=== PATIENT | male | born 1965 | race Caucasian/White ===

== ENCOUNTER 2024-09-05 09:25 | Outpatient (AMB) | payer MEDICAID, SELFPAY ==
--- NOTE | 2024-09-05 09:28 | A.OFFVIS_ITS ---
Vital Signs 09/05/24 09:29 Height 5 ft 7 in Weight 175 lb BMI 27.4 BP 110/78 Blood Pressure Location Rt brachial Position Sitting Pulse 95 Pulse Source Pulse Oximeter Pulse Oximetry (%) 94 Oxygen Delivery Method Room Air Intake Visit Reasons: COPD/Hypoxemia Allergies No Known Allergies Allergy (Unverified 09/05/24 09:32) HPI HPI COPD/Hypoxemia: Details: Dano is a pleasant 58 year old male, current minimal smoker a 20+ pack year history, with underlying COPD, HTN, Anxiety and chronic sinusitis. He was referred by PCP for pulmonary evaluation. He has been maintained on Trelegy 100 mcg however continues to experience significant shortness of breath during physical exertion such as climbing multiple flights of stairs or hills. Additional symptoms include a feeling of chest tightness, possibly exacerbated by underlying anxiety when he faces increased stress or physically demanding si tuations. He denies frequent respiratory infections and reports no benefits derived from his current albuterol usage. The patient has a documented history of emphysema, with his last CT scan 10/2022 showing bilateral ground glass opacities possible related to smoking induced injury. Denies repeat imaging. PFT from February 2024 revealed mild COPD with decreased diffusion capacity reflective of emphysema. He reports over the last few years has minimized smoking and he admits to occasional smoking as a stress reliever despite associated risks. He has a therapist and is currently prescribed antianxiety medications from PCP. His occupational history included exposure to potential respiratory irritants over 30 years in the [employer] industry, and he sometimes suffers from seasonal allergies. He denies prior need for supplmental oxygen and per referral his oxygen saturation was recorded at 89% at PCP visit, however patient refused oxygen at that time. He does have significant clubbing of his fingers, suggests chronic hypoxia indicative of his pulmonary condition. [facility] Social History (Updated 09/05/24 @ 09:32 by Darline Cloud CMA) Patient Tobacco Use Status: Current someday Tobacco user Cigarettes Per Day: 2 Review of Systems Const Denies chills, Denies excessive sweating, Denies fever(s), Denies headache(s) and Denies night sweats Eyes Denies dry eyes, Denies irritation and Denies itchy eyes ENT Reports Normal hearing present, Denies headache(s), Denies nasal congestion, Denies nasal discharge, Denies post nasal drip and Denies sore throat Card Denies chest pain, Denies chest pain at rest, Denies chest pain with activity, Denies claudication, Denies leg edema, Denies dyspnea, Denies orthopnea and Denies paroxysmal nocturnal dyspnea Resp Denies chest congestion, Denies cough, Denies excessive phlegm production, Denies pain on inspiration, Denies pain with cough, Denies dyspnea, Denies stridor and Denies wheezing Musc Denies myalgias Neuro Reports Normal hearing present and Denies headache(s) Endo Denies excessive sweating Zac/Lymph Denies lymphadenopathy Aller/Immun Denies itchy eyes, Denies seasonal rhinorrhea and Denies wheezing Physical Exam Vital Signs: Last Vital Signs Pulse 95 09/05/24 09:29 BP 110/78 09/05/24 09:29 Pulse Ox 94 09/05/24 09:29 Oxygen Delivery Method Room Air 09/05/24 09:29 BMI result Body Mass Index 27.4 Const General: cooperative, healthy appearing, comfortable, no acute distress, well developed and alert Nutritional Appearance: obese Orientation/consciousness: patient oriented x3 Limitations: no limitations HEENT Head: Yes normal to inspection, Yes normocephalic and Yes atraumatic Ears: hearing grossly normal bilaterally and external ears normal Eyes General: appearance normal, both eyes and all related structures Eyelids: Yes eyelids normal Sclerae: sclerae normal EOM: EOMs intact bilaterally Neck Neck: Yes normal visual inspection and Yes no lymphadenopathy Lymphatic: no lymphadenopathy noted Chest Chest palpation & inspection: normal inspection of the chest Resp Effort & Inspection: normal respiratory effort, able to speak in complete sentences, no audible wheezes, no cough, no stridor, not tachypneic, no tripod positioning and no use of accessory muscles Auscultation: diminished lung sounds Cardio Jugular venous distension: no JVD Rate: regular rate Rhythm: regular rhythm Skin Other: warm, dry General skin exam: no rashes or lesions noted Neuro General: patient oriented x3 Cranial nerves: Yes Normal hearing present Cognition (Neuro): normal cognition Gait exam (Neuro): Normal gait present Extrem General: Yes normal to inspection, Yes capillary refill normal, Yes no clubbing, cyanosis or edema and Yes no pedal edema Psych Appearance: grossly normal and well kempt Speech and movement: Normal speech and movement present and Clear speech present Affect: normal affect Attitude: cooperative Thought process: Normal thought process present Thought content: Normal thought content present Insight: Good insight present (Psych) Judgement: Good judgement present (Psych) Assessment & Plan Assessment & Plan (1) COPD (chronic obstructive pulmonary disease): Code(s): J44.9 - Chronic obstructive pulmonary disease, unspecified Category: Medical (2) Ground glass opacity present on imaging of lung: Code(s): R91.8 - Other nonspecific abnormal finding of lung field Category: Medical (3) Nicotine dependence, cigarettes, uncomplicated: Code(s): F17.210 - Nicotine dependence, cigarettes, uncomplicated Category: Medical Plan We reviewed the prior PFT which revealed mild obstructive defect with significant decrease in diffusion capacity and corresponding breathing challenges with exertion. We discussed increasing the dosage of Trelegy 200mcg and discussed importance of good oral hygiene to prevent thrush. Reviewed prior chest CT which revealed bilateral ground-glass opacities possibly related to smoking and need for repeating chest CT to assess for resolution which he was in agreement. Will send this order to [facility] per patient request. We briefly discussed the lung screening program however patient would like to hold off at this time. Advised patient to continue exploring counseling options for anxiety management, recognizing the role of stress in exacerbating respiratory distress. Different smoking cessation strategies, including nicotine gum and counseling, were deliberated upon considering the patient's known tobacco use. We again discussed notable clubbing in relationship to likely chronic hypoxia, however he would like to hold off on a 6 minute walk test at this time. Recommended patient obtain pulse oximeter and monitor oxygen at home, notifying office if he desaturates to 88-90%. All questions were answered and patient is in agreement of plan. Will follow-up to review results or sooner if needed. Orders: Orders CT chest wo IV con Today F1.210 - Nicotine dependence, cigarettes, uncomplicated, R91.8 - Other nonspecific abnormal finding of lung field Medications: New [id number] 200-62.5-25 mcg (Trelegy Ellipta) 1 inh inhalation DAILY 60 ea 6RF Coding Level of Care Code New Pt Level 4 (19497) Diagnoses COPD (chronic obstructive pulmonary disease) J44.9 Ground glass opacity present on imaging of lung R91.8 Nicotine dependence, cigarettes, uncomplicated F17.210
[2024-09-05 09:29] VITALS: BP 110/78; PULSE 95; O2SAT 94; BMI 27.4
== END 2024-09-05 10:05 | disposition home or self-care (01) ==
LOC: HO.HPSW 09:26
PROVIDERS: PCP Nurse Practitioner Family; Referring Provider Nurse Practitioner Family; Visit Provider Nurse Practitioner Family
DX: J44.9 Chronic obstructive pulmonary disease, unspecified (principal); R91.8 Other nonspecific abnormal finding of lung field; F17.210 Nicotine dependence, cigarettes, uncomplicated
CPT/HCPCS: 99204

== ENCOUNTER → 2024-09-05 09:25 | Outpatient (BNVA) | payer MEDICAID, SELFPAY | PROVIDERS: PCP Nurse Practitioner Family; Referring Provider Nurse Practitioner Family; Visit Provider Nurse Practitioner Family | DX: J44.9 Chronic obstructive pulmonary disease, unspecified (principal); R91.8 Other nonspecific abnormal finding of lung field; F17.210 Nicotine dependence, cigarettes, uncomplicated | CPT/HCPCS: 99202 ==

== ENCOUNTER 2024-10-30 10:04 | Outpatient (AMB) | payer MEDICAID, SELFPAY ==
[2024-10-30 10:05] VITALS: BP 114/76; PULSE 96; O2SAT 94; BMI 27.3
--- NOTE | 2024-10-30 10:05 | MHC.OFFVIS ---
Vital Signs 10/30/24 10:05 Height 5 ft 7 in Weight 174 lb 6 oz BMI 27.3 BP 114/76 Blood Pressure Location Rt brachial Position Sitting Pulse 96 Pulse Source Pulse Oximeter Pulse Oximetry (%) 94 Oxygen Delivery Method Room Air Intake Visit Reasons: COPD/Hypoxemia Allergies No Known Allergies Allergy (Unverified 10/30/24 10:09) HPI HPI COPD/Hypoxemia: Details: Dano is a pleasant 58 year old male, former 20+ pack year history, recently quit one month ago with underlying COPD, HTN, Anxiety and chronic sinusitis. At the last visit, Trelegy was increased from 100 mcg to 200 mcg as he continued to report significant shortness of breath and chest tightness. He reports overall improvement and currently denies any respiratory symptoms other than chest tightness which he attributes to anxiety. He has had significant difficulties controlling anxiety and has been working closely with PCP for address. Previously discussed 6MWT however he continues to decline. He denies any visits to urgent care or hospitalizations related to respiratory distress. Today he present to review chest CT results. [facility] Social History (Updated 10/30/24 @ 10:09 by Darline Cloud [facility]) Patient Tobacco Use Status: Former Tobacco user Review of Systems Const Denies chills, Denies excessive sweating, Denies fever(s), Denies headache(s) and Denies night sweats Eyes Denies dry eyes, Denies irritation and Denies itchy eyes ENT Reports Normal hearing present, Denies headache(s), Denies nasal congestion, Denies nasal discharge, Denies post nasal drip and Denies sore throat Card Denies chest pain, Denies chest pain at rest, Denies chest pain with activity, Denies claudication, Denies leg edema, Denies dyspnea, Denies dyspnea on exertion, Denies orthopnea and Denies paroxysmal nocturnal dyspnea Resp Denies chest congestion, Denies cough, Denies excessive phlegm production, Denies pain on inspiration, Denies pain with cough, Denies dyspnea, Denies dyspnea on exertion, Denies stridor and Denies wheezing Musc Denies myalgias Neuro Reports Normal hearing present and Denies headache(s) Endo Denies excessive sweating Zac/Lymph Denies lymphadenopathy Aller/Immun Denies itchy eyes, Denies seasonal rhinorrhea and Denies wheezing Physical Exam Vital Signs: Last Vital Signs Pulse 96 10/30/24 10:05 BP 114/76 10/30/24 10:05 Pulse Ox 94 10/30/24 10:05 Oxygen Delivery Method Room Air 10/30/24 10:05 BMI result Body Mass Index 27.3 Const General: cooperative, healthy appearing, comfortable, no acute distress, well developed and alert Nutritional Appearance: obese Orientation/consciousness: patient oriented x3 Limitations: no limitations HEENT Head: Yes normal to inspection, Yes normocephalic and Yes atraumatic Ears: hearing grossly normal bilaterally and external ears normal Eyes General: appearance normal, both eyes and all related structures Eyelids: Yes eyelids normal Sclerae: sclerae normal EOM: EOMs intact bilaterally Neck Neck: Yes normal visual inspection and Yes no lymphadenopathy Lymphatic: no lymphadenopathy noted Chest Chest palpation & inspection: normal inspection of the chest Resp Effort & Inspection: normal respiratory effort, able to speak in complete sentences, no audible wheezes, no cough, no stridor, not tachypneic, no tripod positioning and no use of accessory muscles Auscultation: diminished lung sounds Cardio Jugular venous distension: no JVD Rate: regular rate Rhythm: regular rhythm Skin Other: warm, dry General skin exam: no rashes or lesions noted Neuro General: patient oriented x3 Cranial nerves: Yes Normal hearing present Cognition (Neuro): normal cognition Gait exam (Neuro): Normal gait present Extrem General: Yes normal to inspection, Yes capillary refill normal, Yes no clubbing, cyanosis or edema and Yes no pedal edema Psych Appearance: grossly normal and well kempt Speech and movement: Normal speech and movement present and Clear speech present Affect: normal affect Attitude: cooperative Thought process: Normal thought process present Thought content: Normal thought content present Insight: Good insight present (Psych) Judgement: Good judgement present (Psych) Results Reviewed Results Reviewed: RESULT: CT Chest W/O Contrast CT Chest W/O Contrast INDICATION: Reason: R91.8 OTHER NONSPECIFIC ABNORMAL FINDING OF LUNG FIELD F17.210 NICOTINE DEPENDENCE, CIGARETTES, UNCOMPLICATED; Clinical Question(s): Other: TECHNIQUE: Helical CT scan of the chest without IV contrast, formatted in 3 planes. Weight-based protocol was performed using automatic exposure control. CTDIvol Body: 11.53 mGy, DLP Body: 434 mGy*cm. COMPARISON: 10/23/2022 FINDINGS: Hob Grinder view findings, lines and tubes: None. Trachea and airways: Patent without evidence of tracheal or endobronchial lesion. Lungs and pleura: Mild to moderate bilateral groundglass and nodular/patchy opacities, predominantly central (with subpleural/peripheral sparing), most pronounced in the lung bases, significantly improved when compared with 10/23/2022. Differential considerations include RB ILD, hypersensitivity pneumonitis or possibly cryptogenic organizing pneumonia. Moderate to severe emphysema. No effusion or pneumothorax. Mediastinum and padmini: No mass or hematoma. Few prominent mediastinal and bilateral hilar lymph nodes, not pathologically enlarged by size criteria, similar to 10/23/2022. No esophageal abnormality. Heart: Heart is normal in size. No pericardial effusion. Mild-moderate coronary artery calcification. Aorta: Mild vascular calcification but no aneurysm. Pulmonary arteries: Normal caliber. Chest wall soft tissues: No acute abnormality. Diaphragm: Intact. Upper abdomen: Spleen appears top normal in size Bones: No acute abnormality. IMPRESSION: 1. Mild-moderate bilateral groundglass and nodular/patchy opacities, predominantly central (with subpleural/peripheral sparing), most pronounced in the lung bases, significantly improved when compared with 10/23/2022. Differential considerations include RB ILD, hypersensitivity pneumonitis or possibly sarcoidosis. 2. Moderate to severe emphysema. 3. Few prominent mediastinal and bilateral hilar lymph nodes, not pathologically enlarged by size criteria, similar to 10/23/2022. RECOMMENDATION: Follow-up CT chest in 3-6 months is recommended. WSN: [id number] Ordering Physician: Milly Solomon Reason For Exam R91.8 OTHER NONSPECIFIC ABNORMAL FINDING OF LUNG FIELD F17.210 NICOTINE DEPENDENCE, CIGARETTES, UNCOMPLICATED Signature Line Dictated By: Vasile Garcia MD Dictated Date/Time: 09/25/24 1:17 pm Reviewed By: Vasile Garcia MD Signed By: Vasile Garcia MD Signed Date/Time: 09/25/24 1:17 pm Transcribed By: CSB Assessment & Plan Assessment & Plan (1) COPD (chronic obstructive pulmonary disease): Code(s): J44.9 - Chronic obstructive pulmonary disease, unspecified Category: Medical (2) Ground glass opacity present on imaging of lung: Code(s): R91.8 - Other nonspecific abnormal finding of lung field Category: Medical (3) Nicotine dependence, cigarettes, uncomplicated: Code(s): F17.210 - Nicotine dependence, cigarettes, uncomplicated Category: Medical Plan Reviewed chest CT 09/2024 which revealed mild-moderate bilateral groundglass and nodular/patchy opacities, predominantly central (with subpleural/peripheral sparing), most pronounced in the lung bases, significantly improved when compared with 10/23/2022. Differential considerations include RB ILD, hypersensitivity pneumonitis or possibly sarcoidosis. Discussed importance of smoking cessation which he is motivated to continue as likely findings on chest CT thought to be smoking related. Since patient asymptomatic at this time, advised to continue Trelegy and will repeat imaging in 6 months to assess for further improvement given smoking cessation. He is requesting this order to be sent to [facility]. All questions were answered and patient is in agreement of plan. Will follow-up to review results or sooner if needed. Orders: Orders CT chest wo IV con 6 Months R91.8 - Other nonspecific abnormal finding of lung field Coding Level of Care Code Est Pt Level 4 (38783) Diagnoses COPD (chronic obstructive pulmonary disease) J44.9 Ground glass opacity present on imaging of lung R91.8 Nicotine dependence, cigarettes, uncomplicated F17.210
--- OUTSIDE RECORDS SUMMARY | 2024-10-30 11:01 | XMS_ITS | Encounter Summary ---
Author Organization [facility] Address [address] [place] [phone] Phone Care Team Providers Care General Cleaner Name Role Phone Unknown, Unknown Primary Care Provider Darius Wyatt MD Unavailable [phone] Melvina Molina RN Unavailable Ekta Yang NP Primary Care Provider [phone] Encounter Details Date Type Department Care Team (Late st Contact Info) Description 11/16/2022 Procedure Pass [facility] Admitting Dept Virtual Department [address] [place] [address] Social History Tobacco Use Types Packs/Day Years Used Date Smoking Tobacco: Every Day Cigarettes 0.3 30 Smokeless Tobacco: Never Alcohol Use Standard Drinks/Week Comments Yes 0 (1 standard drink = 0.6 oz pur e alcohol) 2 yearly Education Answer Date Recorded Are you interested in more education? Not on jenifer e 07/16/2022 Are you concerned about learning? Not on file 07/16/2022 No 07/16/2022 No 07/16/2022 Digital Access Answer Date Recorded No 08/16/2022 No 08/16/2022 Reliable internet access at home? Not on file 08/16/2022 Device with a working camera? Not on file Intimate Partner Violence Answer Date R ecorded Are you denied basic needs s uch as food, clothing, or medical care? No 11/16/2022 In the past 12 months have y ou been in a relationship with a person who hurts, threatens, or tries to control you? No 11/16/2022 Are you denied basic needs s uch as food, clothing, or medical care? No 11/16/2022 In the past 12 months have y ou been in a relationship with a person who hurts, threatens, or tries to control you? No 11/16/2022 Sex and Gender Information Value Date Recorded Sex Assigned at Not on file Legal Sex Male 9:38 PM EDT Gender Identity Not on file Sexual Orientation Not on file documented as of this encounter Plan of Treatment Not on file documented as of this encounter Visit Diagnoses Not on filedocumented in this encounter Additional Health Concerns Assessment Noted Time PHQ-2 Depression Total Score: 0 03/28/19 18 1:01 PM EST documented as of this encounter Care Teams General Cleaner Relationship Specialty Start Date End Date Unknown, Unknown, PCP - General 09/04/18 08/16/23 Ekta Yang NP [address] [place] [phone] PCP - General Nurse Practitioner 08/17/23 Darius Temple MD [address] [place] [id number] [email or web address] Insurance Assigned Provider 10/24/22 12/25/22 Melvina Molina RN [address] [place] [id number] [email or web address] Sprink[employer] T[employer] 08/17/23 09/13/23 documented as of this encounter Additional Source Comments The information contained in this document represents components of the legal health record. It is not the complete legal health record.[facility]
== END 2024-10-30 10:36 | disposition home or self-care (01) ==
LOC: HO.HPSW 10:04
PROVIDERS: PCP Nurse Practitioner Family; Visit Provider Nurse Practitioner Family
DX: J44.9 Chronic obstructive pulmonary disease, unspecified (principal); R91.8 Other nonspecific abnormal finding of lung field; F17.210 Nicotine dependence, cigarettes, uncomplicated
CPT/HCPCS: 99214

== ENCOUNTER → 2024-10-30 10:04 | Outpatient (BNVA) | payer MEDICARE, MEDICAID, SELFPAY | PROVIDERS: PCP Nurse Practitioner Family; Visit Provider Nurse Practitioner Family | DX: R91.8 Other nonspecific abnormal finding of lung field (principal); J44.9 Chronic obstructive pulmonary disease, unspecified; F17.210 Nicotine dependence, cigarettes, uncomplicated | CPT/HCPCS: 99212 ==

== ENCOUNTER 2025-03-01 14:17 | Outpatient (AMB) | payer MEDICARE, MEDICAID, SELFPAY ==
--- NOTE | 2025-03-01 14:20 | A.OFFVIS_ITS ---
Vital Signs 03/01/25 14:22 Height 5 ft 7 in Weight 193 lb BMI 30.2 BP 124/80 Blood Pressure Location Rt brachial Position Sitting Pulse 87 Pulse Source Pulse Oximeter Pulse Oximetry (%) 96 Oxygen Delivery Method Room Air Intake Visit Reasons: COPD/Hypoxemia Allergies No Known Allergies Allergy (Unverified 03/01/25 14:23) HPI Comments Details: Dano is a pleasant 59 year old male, former 20+ pack year history, quit 6 months underlying COPD, HTN, Anxiety and chronic sinusitis. At the last visit he reported good control of respiratory symptoms with the use of Trelegy. Unfortunately, he reports worsening dyspnea after having COVID in December, which required an overnight hospital stay. He has a history of ground glass opacities noted on a CT scan in 2022, which showed significant improvement compared to most recent CT performed this summer, with the plan to repeat imaging in 6 months as findings were possibly related to smoking which he quit now 6 months ago. He also reported a fall where he landed on a truck fender, causing him to believe he cracked his ribs. Following the fall, he was unable to take a deep breath for a week. 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 Associated symptoms include intermittent cough in the morning and some chest tightness, which he attributes to his fall. He has been experiencing joint pain for months, dry skin, dry mouth, and dry eyes. Past medical history is significant for osteoarthritis, a hip replacement, and a fusion in his neck. 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 Pulmonology History - Hospitalized overnight for COVID-19 in December. - CT scan in 2022 showed lung inflammation, which significantly improved on a subsequent scan over the summer. - Quit smoking on September 14, smoke-free for nearly six months. - Abnormal chest X-ray at an urgent care recently after a fall. - Takes Trelegy daily; reports albuterol inhaler is not effective. - History of finger clubbing. - In-Office Testing: A 6-minute walk test was performed, and the patient's oxygen levels remained stable, indicating he does not require supplemental oxygen with exertion at this time. [facility] Social History Patient Tobacco Use Status: Former Tobacco user Review of Systems Narrative Const Denies chills, Denies excessive sweating, Denies fever(s), Denies headache(s) and Denies night sweats Eyes Denies irritation and Denies itchy eyes ENT Reports Normal hearing present, Denies headache(s), Denies nasal congestion, Denies nasal discharge, Denies post nasal drip and Denies sore throat Card Denies chest pain, Denies chest pain at rest, Denies chest pain with activity, Denies claudication, Denies leg edema, Denies orthopnea and Denies paroxysmal nocturnal dyspnea Resp Denies chest congestion, Denies excessive phlegm production, Denies pain on inspiration, Denies pain with cough and Denies stridor Musc Denies myalgias Neuro Reports Normal hearing present and Denies headache(s) Endo Denies excessive sweating Zac/Lymph Denies lymphadenopathy Aller/Immun Denies itchy eyes and Denies seasonal rhinorrhea Physical Exam Exam Exam: Vital Signs: Last Vital Signs Pulse 87 03/01/25 14:22 BP 124/80 03/01/25 14:22 Pulse Ox 96 03/01/25 14:22 Oxygen Delivery Method Room Air 03/01/25 14:22 BMI result Body Mass Index 30.2 Const General: cooperative, healthy appearing, comfortable, no acute distress, well developed and alert Nutritional Appearance: obese Orientation/consciousness: patient oriented x3 Limitations: no limitations HEENT Head: Yes normal to inspection, Yes normocephalic and Yes atraumatic Ears: hearing grossly normal bilaterally and external ears normal Eyes General: appearance normal, both eyes and all related structures Eyelids: Yes eyelids normal Sclerae: sclerae normal EOM: EOMs intact bilaterally Neck Neck: Yes normal visual inspection and Yes no lymphadenopathy Lymphatic: no lymphadenopathy noted Chest Chest palpation & inspection: normal inspection of the chest Resp Effort & Inspection: normal respiratory effort, able to speak in complete sentences, no audible wheezes, no cough, no stridor, not tachypneic, no tripod positioning and no use of accessory muscles Auscultation: clear to auscultation bilaterally Cardio Jugular venous distension: no JVD Rate: regular rate Rhythm: regular rhythm Skin Other: warm, dry General skin exam: no rashes or lesions noted Neuro General: patient oriented x3 Cranial nerves: Yes Normal hearing present Cognition (Neuro): normal cognition Gait exam (Neuro): Normal gait present Extrem General: Yes normal to inspection, Yes capillary refill normal, Yes no clubbing, cyanosis or edema and Yes no pedal edema Psych Appearance: grossly normal and well kempt Speech and movement: Normal speech and movement present and Clear speech present Affect: normal affect Attitude: cooperative Thought process: Normal thought process present Thought content: Normal thought content present Insight: Good insight present (Psych) Judgement: Good judgement present (Psych) Office Procedures 6 Minute Walk Time:: 14:56 SPO2 % at rest: 95 Pulse at rest: 85 SPO2 % during excercise: 91 Pulse during excercise: 110 SPO2 % after excercise: 96 Pulse after excercise: 99 Distance in yards walked: 75 Janene Score: 8 Performance Observations:: Patient walked unassisted on level ground at a brisk pace. Patient maintained O2 saturation of 91-93% and pulse rate 100-110 for the entirety of the walk. Patient did get very sob but also did carry on a conversation during the walk. Did not require the use of supplemental oxygen. [id number] - 6 Minute Walk Assessment & Plan Assessment & Plan (1) COPD (chronic obstructive pulmonary disease): Code(s): J44.9 - Chronic obstructive pulmonary disease, unspecified Category: Medical (2) Ground glass opacity present on imaging of lung: Code(s): R91.8 - Other nonspecific abnormal finding of lung field Category: Medical (3) Dyspnea on exertion: Code(s): R06.09 - Other forms of dyspnea Category: Medical (4) Personal history of tobacco use: Code(s): Z87.891 - Personal history of nicotine dependence Category: Medical Plan Discussed with the patient that his persistent shortness of breath and the inflammation seen on imaging are possibly due to an interstitial lung disease, rather than an infectious process. 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 The plan moving forward includes a new chest CT scan to assess the current inflammation and blood work to screen for autoimmune conditions and other exposures. Prescribed a 12-day tapering course of prednisone. We had a detailed discussion about the potential short-term and long-term side effects of prednisone, including mood changes, sleep disruption, increased appetite, and others. He is aware to call if he is unable to tolerate. We performed a 6-minute walk test in the office, and explained that his oxygen levels remained stable, which is good news and means he does not require supplemental oxygen at this time. Instructed him to get the ordered labs done today, and that our office would schedule the CT scan. We will follow up in approximately four weeks to review the results of the scan and labs, or sooner if symptoms persist. All questions were answered and patient is in agreement of plan. Patient was informed and verbally consented to the use of an ambient scribe for clinic note documentation during this visit. Orders: Orders CT chest wo IV con Today R91.8 - Other nonspecific abnormal finding of lung field, R93.89 - Abnormal findings on diagnostic imaging of other specified body structures Hypersensitive Pneumonitis Prf Today R93.89 - Abnormal findings on diagnostic imaging of other specified body structures Sjogren's Antibodies Today R68.2 - Dry mouth, unspecified Scleroderma 70 Antibody Today R93.89 - Abnormal findings on diagnostic imaging of other specified body structures Anti DNA DS Antibody Today M25.50 - Pain in unspecified joint LIAM Reflex Titer and Pattern Today M25.50 - Pain in unspecified joint Cyclic Citrullinated Peptide Today M25.50 - Pain in unspecified joint Rheumatoid Factor Today M25.50 - Pain in unspecified joint AMB 6 minute walk Today J44.9 - Chronic obstructive pulmonary disease, unspecified Medications: New prednisone see taper instructions; 40 mg Daily x3 days, 30 mg daily x3 days, 20 mg daily x3 days, 10 mg daily x3 days 10 mg PO DIRECTED 30 tabs 0RF Coding Level of Care Code Est Pt Level 4 (77324) Add On Problem Visit Only Diagnoses COPD (chronic obstructive pulmonary disease) J44.9 Ground glass opacity present on imaging of lung R91.8 Dyspnea on exertion R06.09 Personal history of tobacco use Z87.891 CPT Codes Coding ([id number])
[2025-03-01 14:22] VITALS: BP 124/80; PULSE 87; O2SAT 96; BMI 30.2
[2025-03-01 15:12] VITALS: PULSE 85; O2SAT 95
--- OUTSIDE RECORDS SUMMARY | 2025-03-01 19:33 | XMS_ITS | Encounter Summary ---
Author Organization [facility] Address [address] [place] [id number] Phone Care Team Providers Care Government Gauger Name Role Phone Unknown, Unknown Primary Care Provider Darius Wyatt MD Unavailable [phone] Melvina Molina RN Unavailable Ekta Yang NP Primary Care Provider [phone] Encounter Details Date Type Department Care Team (Late st Contact Info) Description 11/16/2022 Procedure Pass [facility] Endoscopy Admitting Dept Virtual Department [address] [place] [address] Social History Tobacco Use Types Packs/Day Years [...] as of this encounter Plan of Treatment Scheduled Procedures Name Priority Associated Diagnoses Date/Ti me COLONOSCOPY History of colonic polyps documented as of this encounter Visit Diagnoses Not on filedocumented in this encounter Additional Health Concerns Assessment Noted Time PHQ-2 Depression Total Score: 0 03/28/19 18 1:01 PM EST documented as of this encounter Care Teams Government Gauger Relationship Specialty Start Date End Date Unknown, Unknown, PCP - General 09/04/18 08/16/23 Ekta Yang NP [address] [place] [id number] PCP - General Nurse Practitioner 08/17/23 Darius Temple MD [address] [place] [address] Insurance Assigned Provider 10/24/22 12/25/22 Melvina Molina RN [address] [place] [id number] PHCM Line Department Supervisor 08/17/23 09/13/23 documented as of this encounter Additional Source Comments The information contained in this document represents components of the legal health record. It is not the complete legal health record.[facility]
--- OUTSIDE RECORDS SUMMARY | 2025-03-01 19:33 | XMS_ITS | Encounter Summary ---
Author Organization [facility] Address [address] [place] [address] Phone Care Team Providers Care Customer Response Representative Name Role Phone Ekta Yang CLAY TEMPER[employer] Primary Care Provider [phone] Encounter Details Date Type Department Care Team (Latest Contact Info) Description 11/28/2024 Transcribe Orders [facility] Phleb [facility] [address] [address] Debora Roy NP [address] [place] [address] Family history of malignant neoplasm of gastrointestinal tract (Primary Dx); Hx of colonic polyps Social History Tobacco Use Types Packs/Day Years [...] colonic polyps documented as of this encounter Results * (ABNORMAL) C-Reactive Protein (11/28/2024 10:25 AM EDT) C REACTIVE PROTEIN 16.4(H) 0.0 - 4.0 mg/L [facility] Blood 11/28/2024 10:2 5 AM EDT 11/28/2024 10:28 AM EDT Debora Roy NP LAB BLOOD BKR O RDERABLES Final Result [facility] [address] [place] [address] * (ABNORMAL) Comprehensive metabolic panel (11/28/2024 10:25 AM EDT) SODIUM 135 133 - 146 mmol/L [facility] POTASSIUM 3.8 3.3 - 5.1 mmol/L [facility] CHLORIDE 99 96 - 108 mmol/L [facility] CO2 22 21 - 35 mmol/L [facility] BUN 13 6 - 19 mg/dL [facility] CREATININE 1.10 0.5 - 1.5 mg/dL [facility] GLUCOSE 89 70 - 99 mg/dL [facility] ALBUMIN 4.5 3.9 - 4.8 g/dL [facility] TOTAL PROTEIN 8.4(H) 6.5 - 8.0 g/dL [facility] CALCIUM 10.2 8.4 - 10.3 mg/dL [facility] ALKALINE PHOSPHATASE 105 39 - 117 U/L [facility] TOTAL BILIRUBIN 1.0 0.0 - 1.2 mg/dL [facility] AST 29 0 - 37 U/L [facility] ALT 29 0 - 40 U/L [facility] GLOBULIN 3.9 1 - 4.8 g/dL [facility] EGFR 78 >59 mL/min/1.7 3m2 [facility] Comment:Estimated glomerular filtration rate calculated using the CKD-EPI refit equation. ANION GAP 18 10 - 20 mmol/L [facility] Blood 11/28/2024 10:2 5 AM EDT 11/28/2024 10:28 AM EDT us Debora Roy CLAY TEMPERER LAB BLOOD BKR O RDERABLES Final Result [address] [address] * (ABNORMAL) CBC (11/28/2024 10:25 AM EDT) WBC 6.17 4.00 - 11.00 K/uL [facility] RBC 5.29 4.50 - 5.90 M/uL [facility] HGB 16.3 13.5 - 17.5 g/dL [facility] HCT 47.5 41.0 - 53.0 % [facility] PLT 133(L) 150 - 450 K/uL [facility] MCV 89.8 80.0 - 100.0 fL [facility] MCH 30.8 27.0 - 31.0 pg [facility] MCHC 34.3 32.0 - 36.0 g/dL [facility] RDW 14.3 11.5 - 14.5 % [facility] MPV 10.2 8.4 - 12.0 fL [facility] NRBC 0.00 0.00 /100 WBCs [facility] ABSOLUTE NRBC 0.00 0.00 K/uL [facility] Blood 11/28/2024 10:2 5 AM EDT 11/28/2024 10:28 AM EDT us Debora Roy [employer] LAB BLOOD BKR O RDERABLES Final Result [address] [address] * Immunoglobulin A (11/28/2024 10:25 AM EDT) IgA 322 70 - 400 mg/dL [facility] Blood 11/28/2024 10:2 5 AM EDT 11/28/2024 10:28 AM EDT Debora Roy NP LAB BLOOD BKR O RDERABLES Final Result Performing Organization Address City/[facility]/ZIP Co de Phone Number [address] [address] * Tissue transglutaminase IgA (11/28/2024 10:25 AM EDT) TTG IGA ANTIBODY 2.8 <4.0 (Negative) U/mL [facility] Blood 11/28/2024 10:2 5 AM EDT 11/28/2024 10:28 AM EDT Debora Roy NP LAB BLOOD BKR O RDERABLES Final Result Performing Organization Address [facility]/ZIP Co de Phone Number [facility] [place] [address] documented in this encounter Visit Diagnoses Diagnosis Family history of malignant neoplasm of gastrointestinal tract- Primary Hx of colonic polyps Personal history of colonic polyps documented in this encounter Additional Health Concerns Assessment Noted Time PHQ-2 Depression Total Score: 0 03/28/19 18 1:01 PM EST documented as of this encounter Care Teams Customer Response Representative Relationship Specialty Start Date End Date Ekta Yang NP [address] [place] [phone] PCP - General Nurse Practitioner 08/17/23 documented as of this encounter Additional Source Comments The information contained in this document represents components of the legal health record. It is not the complete legal health record.[facility]
--- OUTSIDE RECORDS SUMMARY | 2025-03-01 19:33 | XMS_ITS | Clinical Summary ---
Author Organization [facility] Address [address] [facility] [address] [place] [address] Phone Care Team Providers Care Supervisor Metal Fabricating Name Role Phone Ekta Yang Ary MARY Primary Care Provider [phone] [phone] Allergies No known active allergies Medications TENS unit and electrodes Cmpk as directed 07/06/2016 A ctive amLODIPine (NORVASC) 10 MG tablet TAKE 1 TABLET BY MOUTH EVERY DAY 90 tablet 05/25/2018 Active simvastatin (ZOCOR) 20 MG tablet Take 20 mg by mouth nightly at bedtime. at bedtime. 10/13/2022 Active albuterol 90 mcg/actuation inhaler Inhale 2 puffs into the lungs every 4 (four) hours as needed. 11/12/2022 Active TRELEGY ELLIPTA 200-62.5-25 mcg inhaler Inhale 1 puff into the lungs daily. 12/20/2024 Active escitalopram oxalate (LEXAPRO) 20 MG tablet Take 1 tablet by mouth every morning. 01/03/2025 Active omeprazole (PRILOSEC) 20 MG capsule Take 1 capsule by mouth every morning. 01/03/2025 Active tiZANidine (ZANAFLEX) 4 MG tablet 01/07/2025 Active Active Problems Problem Noted Date Diagnosed Date Essential hypertension 03/28/2017 Hypertriglyceridemia 03/28/2017 Gastroesophageal reflux disease without esophagi tis 03/28/2017 Tendinitis of left shoulder 03/28/2017 Neck pain 03/28/2017 Radicular pain of lumbosacral region 03/28/2017 Right inguinal hernia 03/28/2017 Smoker 03/28/2017 Testicular mass 03/28/2017 Tobacco dependence syndrome 03/28/2017 Status post left rotator cuff repair 01/21/2017 Encounters Date Type Department Care Team Description 5 Telephone [facility] [address] [place] [address] Caleb Kearns MD Schedule Procedure 5 1:34 PM EST Anesthesia Event [facility] Endoscopy Admitting Dept Virtual Department [address] [place] [address] Torsten El MD 5 1:30 PM EST - 5 1:45 PM EST Surgery [facility] Endoscopy Admitting Dept Virtual Department [address] [place] [address] Erick Sahu MD ESOPHAGOGASTRODUODENOSCOPY 5 12:11 PM EST - 5 2:00 PM EST Hospital Encounter [facility] Admitting Dept Virtual Department [address] [place] [address] Erick Sahu MD Discharge Disposition: Home or Self Care 5 Orders Only [facility] [address] [place] [address] Erick Sahu MD History of colonic polyps (Primary Dx) 5 Procedure Pass [facility] Endoscopy Admitting Dept Virtual Department [address] [place] [address] 5 1:30 PM EDT Pre-Admission Testing Pre Procedure Evaluation [address] [place] [address] Erick Sahu MD from Last 3 Months Immunizations Immunization Administration Dates Next Due INFLUENZA, SPLIT VIRUS, TRIVALENT PF 11/25/2016, 03/17/2016 INFLUENZA, SPLIT VIRUS, TRIVALENT W/ PRESERVATIV E IM 01/28/2015,12/27/2013 Influenza trivalent preservative free intraderma l 12/19/2012 Family History Medical History Relation Comments No Known Problems Brother Heart disease Father Stroke Mother No Known Problems Sister 1 No Known Problems Sister 2 Relation Status Comments Brother Alive Father Mother (Age 60) stroke Sister 1 Alive Sister 2 Alive Social History Tobacco Use Types Packs/Day Years Used Date Smoking Tobacco: Every Day Cigarettes 0.3 30 Smokeless Tobacco: Never Tobacco Cessation:Ready to Q uit: Not Asked; Counseling Given: Not Answered Comments:Qi 4 mos ago Alcohol Use Standard Drinks/Week Comments Not Currently 0 (1 standard drink = 0.6 oz pur e alcohol) quit 2022 Education Answer Date Recorded Are you interested [...] as food, clothing, or medical care? No 01/23/2025 In the past 12 months have y ou been in a relationship with a person who hurts, threatens, or tries to control you? No 01/23/2025 Are you denied basic needs s uch as food, clothing, or medical care? No 01/23/2025 In the past 12 months have y ou been in a relationship with a person who hurts, threatens, or tries to control you? No 01/23/2025 Sex and Gender Information Value Date Recorded Sex Assigned at Not on file Legal Sex Male 9:38 PM EDT Gender Identity Not on file Sexual Orientation Not on file Last Filed Vital Signs Vital Sign Reading Time Taken Comments Blood Pressure 130/93 01/23/2025 2:26 PM EST Pulse 78 01/23/2025 2:26 PM EST Temperature 36.1 C (97 F) 01/23/2025 2:06 PM EST Respiratory Rate 12 01/23/2025 2:26 PM EST Oxygen Saturation 97% 01/23/2025 2:26 PM EST Inhaled Oxygen Concentration - - Weight 77.1 kg (170 lb) 01/11/2025 2:54 PM EDT Height 170.2 cm (5' 7 ) 01/11/2025 2:54 PM EDT Body Mass Index 26.63 01/11/2025 2:54 PM EDT Plan of Treatment Scheduled Procedures Name Priority Associated Diagnoses Date/Ti me COLONOSCOPY History of colonic polyps Health Maintenance Due Date Last Done Comments BLOOD PRESSURE 1965 HIV ONE-TIME SCREENING (18-65 YEARS) 1984 PNEUMOCOCCAL VACCINES (50+ years) (1 of 2 - PCV) 1985 COLOGUARD 12/12/2011 FIT TEST 12/12/2011 FOBT 12/12/2011 SIGMOIDOSCOPY 12/12/2011 VIRTUAL COLONOSCOPY 12/12/2011 ZOSTER VACCINES (1 of 2) 2016 DEPRESSION SCREENING 03/28/2018 03/28/2017 INFLUENZA VACCINE (#1) 2024 , 11/25/2016, 03/17/2016, Additional history exists COVID-19 VACCINE ( - season) 2024 COLONOSCOPY 07/23/2025 01/23/2025, 11/16/2022 COLORECTAL CANCER SCREENING 07/23/2025 SMOKING Hx and SMOKELESS TOBACCO SCREENING 01/23/2026 01/23/2025 SCREENING FOR DIABETES 11/29/2027 11/28/2024, 2017 EGD 01/24/2028 01/23/2025 LIPID PANEL 12/01/2028 12/02/2023, 11/19, 09/23/2022, Additional history exists Adult Td,Tdap Booster 12/01/2033 12/02/2023 RSV VACCINE (1 - 1-dose 75+ series) 2041 HEPATITIS C SCREENING Completed 09/23/2022 HEPATITIS A VACCINES Aged Out No long er eligible based on patient's age to complete this topic HIB VACCINES Aged Out No longer eligi ble based on patient's age to complete this topic MENINGOCOCCAL VACCINES (ACWY) Aged Out No longer eligible based on patient's age to complete this topic MENINGOCOCCAL VACCINES (B) Aged Out N o longer eligible based on patient's age to complete this topic Medical Devices Implanted Type Area Child Support Agent Device Identifier Shelf Expiration Date Model / Serial / Lot Prosthetic Joint Prosthetic Joint Right: Hip Fusion C5-C6 And L4-S1 Screw Back Procedures Procedure Name Priority Date/Time Associated Diagnosis Comments TISSUE EXAM Routine 01/23/2025 1:45 PM EST PA COLSC FLX W/RMVL OF TUMOR POLYP LESION SNARE TQ 01/23/2025 1:34 PM EST Family history of colon cancer Hx of colonic polyps PA COLONOSCOPY W/BIOPSY SINGLE/MULTIPLE 01/23/2025 1:34 PM EST Family history of colon cancer Hx of colonic polyps PA COLONOSCOPY FLX DX W/HOLLY J SPEC WHEN PFRMD 01/23/2025 1:34 PM EST Family history of colon cancer Hx of colonic polyps PA EGD ABLATE TUMOR POLYP/LESION W/DILATION& WIRE 01/23/2025 1:34 PM EST Family history of colon cancer Hx of colonic polyps PA EDG TRANSORAL BIOPSY SINGLE/MULTIPLE 01/23/2025 1:34 PM EST Family history of colon cancer Hx of colonic polyps PA ESOPHAGOGASTRODUODENOSCOP Y TRANSORAL DIAGNOSTIC 01/23/2025 1:34 PM EST Family history of colon cancer Hx of colonic polyps ENDOSCOPY PROCEDURE 01/23/2025 1:22 PM EST ENDOSCOPY, COLON 01/23/2025 1:22 PM EST LIPID PANEL Routine 07/19/2017 9:07 AM EDT High triglycerides from Last 3 Months or Most Recently Relevant to Health Maintenance Results * Tissue Exam (01/23/2025 1:45 PM EST) Final Pathologic Diagnosis A. STOMACH, BODY; BIOPSY: Chronic gastritis. B. GASTROESOPHAGEAL JUNCTION; BIOPSY: Squamocolumnar junction with complete intestinal metaplasia consistent with Gagnon's esophagus. Negative for dysplasia. C. COLON, ASCENDING: Adenomatous polyp. D. COLON, SIGMOID: Adenomatous polyp. Note: Immunohistochemical stains for Helicobacter pylori are performed on the gastric biopsies and DO NOT DEMONSTRATE organisms with the morphologic characteristics of Helicobacter. 11:51 AM EST [facility] at 1457 EST Addendum SEE SEPARATE [employer] REPORT, CASE#[id number] PERFORMED AT [employer], [email or web address] [facility] [place], [address] [place] [address] 11:51 AM EST [facility] Addendum electronically signed by Kimberley Hawkins MD on 02/21/2025 at 1150 EST Clinical History Pre-op diagnosis: Family history of colon cancer [Z80.0] Hx of colonic polyps [Z86.0100] 11:51 AM [facility] Gross Description A. STOMACH, BODY: Received in formalin are 2 irregular worthy-pink soft tissue fragments measuring on average 0.3 x 0.2 x 0.2 cm which are submitted in toto in a single cassette labeled A1. B. GASTROESOPHAGEAL JUNCTION: Received in formalin are 2 irregular worthy-pink soft tissue fragments measuring 0.1 x 0.1 x 0.1 cm and 0.2 x 0.2 x 0.1 cm which are submitted in toto in a single cassette labeled B1. C. COLON, ASCENDING: Received in formalin is a 0.2 x 0.2 x 0.2 cm irregular portion of worthy-pink soft tissue which is submitted in toto in a single cassette labeled C1. D. COLON, SIGMOID: Received in formalin is a 0.8 x 0.5 x 0.5 cm polypoid portion of worthy-pink mucosal tissue. The base is marked with ink, and the specimen is bisected and entirely submitted in a single cassette labeled D1. Grossed by: SHANNA Rodriguez PA(ASCP) 11:51 AM [facility] Grossed By Dilan Sanders 11:51 AM [facility] Result Priority Level Routine 11:51 AM [facility] Disclaimer By their signature mila karimi, the pathologist listed as making the Final Diagnosis certifies that they have personally reviewed the case and confirmed the diagnosis. All slides and stains were of sufficient quality to establish the diagnosis, unless otherwise stated. Due to loss of elastic tension and/or tissue shrinkage in formalin, the clinical sizes of tissue specimens may be larger than those provided in this report. Unless otherwise stated above, immunohistochemical, in-situ hybridization and immunofluorescence tests were performed at the Anatomic Pathology laboratory. These tests were developed, and their performance characteristics were determined by the laboratory. Appropriate controls were performed and evaluated. Certain tests may not have been validated in decalcified tissues, therefore results in decalcified tissues should be interpreted with caution. These tests have not been cleared or approved by the U.S. Food and Drug Administration (FDA); however, the FDA has determined that such clearance or approval is not necessary. These tests are for clinical purposes and should not be regarded as investigational or for research. 12/04/202 5 11:51 AM EST [facility] Procedure ESOPHAGOGASTRODUODEN OSCOPY COLONOSCOPY 11:51 AM EST [facility] Gastrointestinal Tissue (Stomach, Body) 01/23/2025 1:45 PM EST 01/23/2025 2:51 PM EST Comment:Pre-op diagnosis: Family history of colon cancer [Z80.0] Hx of colonic polyps [Z86.0100] Gastrointestinal Tissue (Gastroesophageal Junction) 01/23/2025 1:46 PM EST 01/23/2025 2:51 PM EST Comment:Pre-op diagnosis: Family history of colon cancer [Z80.0] Hx of colonic polyps [Z86.0100] Gastrointestinal Tissue (Colon, Ascending) 01/23/2025 1:54 PM EST 01/23/2025 2:51 PM EST Comment:Pre-op diagnosis: Family history of colon cancer [Z80.0] Hx of colonic polyps [Z86.0100] Gastrointestinal Tissue (Colon, Sigmoid) 01/23/2025 2:01 PM EST 01/23/2025 2:51 PM EST Comment:Pre-op diagnosis: Family history of colon cancer [Z80.0] Hx of colonic polyps [Z86.0100] us Erick Sahu MD LAB PATHOLOGY ORDERABLES Edited Result - Final [address] [address] * ENDOSCOPY PROCEDURE (01/23/2025 1:22 PM EST) Narrative Transcriptions Erick Sahu MD - 01/23/2025 1:22 PM EST [facility] Patient Name: Dano Mayersonnell Attending MD:: ERICK SAHU MD, , Procedure Date: 01/23/2025 1:22 PM Date of : 1965 Age: 59 Admit Type: Outpatient Gender: Male Room: [place] [address] Referring MD: Ekta Yang Exam Type: Upper GI endoscopy Indications: Heartburn Medications: Propofol per Anesthesia Procedure: Informed consent was obtained from the patientafter discussion of the indications, limitations, alternatives, benefits, and risks of the procedure. Risks specifically discussed include but are not limited to medication reactions, missed lesions, bleeding, perforation, or the need for emergent surgery. Throughout the procedure, the patient's blood pressure, pulse, end-tidal CO2, and oxygensaturations were monitored continuously. The Olympus gastroscope [id number]-[id number] #4 was introduced through the mouth, and advanced to the second partof duodenum. The upper GI endoscopy was accomplished without difficulty. The patient tolerated the procedure well. Complications: No immediate complications. Estimated blood loss: Minimal. Findings: The examined duodenum was normal. A small hiatal hernia was present. Biopsies were taken with a cold forceps in thegastric body and in the gastric antrum for histology. The exam of the stomach was otherwise normal. LA Grade A (one or more mucosal breaks less than 5mm, not extending between tops of 2 mucosal folds) esophagitis with no bleeding was found. Biopsieswere taken with a cold forceps for histology. The exam of the esophagus was otherwise normal. Impression: - Normal examined duodenum. - Small hiatal hernia. - LA Grade A esophagitis with no bleeding.Biopsied. - Biopsies were taken with a cold forceps for histology in the gastric body and in the gastric antrum. Recommendation: - Await pathology results. - Return to GI office. ERICK SAHU MD, 01/23/2025 1:48:43 PM This report has been signed electronically. Number of Addenda: 0 Note Initiated On: 01/23/2025 1:22 PM Procedure Code(s): --- Professional --- 23708, Esophagogastroduodenoscopy, flexible, transoral; with biopsy, single or multiple --- Technical --- 28827, Esophagogastroduodenoscopy, flexible, transoral; with biopsy, single or multiple Diagnosis Code(s): --- Professional --- K44.9, Diaphragmatic hernia without obstruction or gangrene K20.90, Esophagitis, unspecified without bleeding R12, Heartburn --- Technical --- K44.9, Diaphragmatic hernia without obstruction or gangrene K20.90, Esophagitis, unspecified without bleeding R12, Heartburn CPT copyright 2021 [employer]. All rights reserved. The codes documented in this report are preliminary and upon broiler manager reviewmay be revised to meet current compliance requirements. Procedure Date: 01/23/2025 1:22:[address] [place] [address] [id number] us Ekta Yang NP GI PROCEDURE ORDERABLES F inal Result * ENDOSCOPY, COLON (01/23/2025 1:22 PM EST) Narrative Transcriptions Erick Sahu MD - 01/23/2025 1:22 PM EST [facility] Patient Name: Dano Jay Attending MD:: ERICK SAHU MD, , Procedure Date: 01/23/2025 1:22 PM Date of : 1965 Age: 59 Admit Type: Outpatient Gender: Male Room: [facility] 04 Referring MD: Ekta Yang Exam Type: Colonoscopy Indications: High risk colon cancer surveillance: Personalhistory of colonic polyps, Family history of colon cancerin a first-degree relative before age 60 years Medications: Monitored Anesthesia Care Procedure: Informed consent was obtained from the patientafter discussion of the indications, limitations, alternatives, benefits, and risks of the procedure. Risks specifically discussed include but are not limited to medication reactions, missed lesions, bleeding, perforation, or the need for emergent surgery. Throughout the procedure, the patient's blood pressure, pulse, end-tidal CO2, and oxygensaturations were monitored continuously. The Olympus adult variable colonoscope [id number] #5 was introduced through the anus and advanced to the cecum, identified by appendiceal orifice andileocecal valve. The colonoscopy was performed without difficulty. The patient tolerated the procedurewell. The quality of the bowel preparation was excellent. The quality of the bowel preparation was evaluated using the BBPS ([place] Bowel Preparation Scale)with scores of: Right Colon = 3, Transverse Colon = 3and Left Colon = 3 (entire mucosa seen well with no residual staining, small fragments of stool oropaque liquid). The total BBPS score equals 9. Anatomical landmarks were photographed. Complications: No immediate complications. Estimated blood loss: Minimal. Findings: The perianal and digital rectal examinations were normal. A 4 mm polyp was found in the ascending colon. The polyp was sessile. The polyp was removed with acold snare. Resection and retrieval were complete. An 8 mm polyp was found in the sigmoid colon. The polyp was sessile. The polyp was removed with acold snare. Resection and retrieval were complete. A 15 mm polyp was found in the descending colonaround 55cm. The polyp was sessile. Polypectomy was not attempted due to difficult location. Area wastattooed with an injection of 2 mL of Tia ink. Internal hemorrhoids were found duringretroflexion. The hemorrhoids were mild. No other significant abnormalities were identifiedin a careful examination of the remainder of thecolon. Impression: - One 4 mm polyp in the ascending colon, removedwith a cold snare. Resected and retrieved. - One 8 mm polyp in the sigmoid colon, removed witha cold snare. Resected and retrieved. - One 15 mm polyp in the descending colon.Resection not attempted. Tattooed. - Internal hemorrhoids. Recommendation: - Discharge patient to home. - Repeat colonoscopy at the next available appointment forpolypectomy with Dr. Kearns ERICK SAHU MD, 01/23/2025 2:18:56 PM This report has been signed electronically. Number of Addenda: 0 Note Initiated On: 01/23/2025 1:22 PM Procedure Code(s): --- Professional --- 50122, Colonoscopy, flexible; with removal of tumor(s), polyp(s), or other lesion(s) by snare technique 41320, Colonoscopy, flexible; with directed submucosal injection(s),any substance --- Technical --- 89681, Colonoscopy, flexible; with removal of tumor(s), polyp(s), or other lesion(s) by snare technique 53662, Colonoscopy, flexible; with directed submucosal injection(s),any substance Diagnosis Code(s): --- Professional --- Z86.010, Personal history of colonic polyps D12.2, Benign neoplasm of ascending colon D12.5, Benign neoplasm of sigmoid colon D12.4, Benign neoplasm of descending colon K64.8, Other hemorrhoids Z80.0, Family history of malignant neoplasm of digestive organs --- Technical --- Z86.010, Personal history of colonic polyps D12.2, Benign neoplasm of ascending colon D12.5, Benign neoplasm of sigmoid colon D12.4, Benign neoplasm of descending colon K64.8, Other hemorrhoids Z80.0, Family history of malignant neoplasm of digestive organs CPT copyright 2021 [employer]. All rights reserved. The codes documented in this report are preliminary and upon broiler manager reviewmay be revised to meet current compliance requirements. Procedure Date: 01/23/2025 1:22:[address] [place] [id number] us Ekta Yang NP GI PROCEDURE ORDERABLES F inal Result * (ABNORMAL) Lipid panel (07/19/2017 9:07 AM EDT) HDL 26 mg/dL [facility] Comment: Interpretation: Risk Level Males Decreased >45 mg/dL Average 40-45 mg/dL Increased <40 mg/dL CHOLESTEROL 182 0 - 240 mg/dL [facility] TRIGLYCERIDES 327(H) 30 - 160 mg/dL [facility] LDL 91 50 - 129 mg/dL [facility] Comment: LDL levels in terms of risk for coronary heart disease: <100 mg/dL: Optimal 100-129 mg/dL: Near or above optimal 130-159 mg/dL: Borderline high 160-189 mg/dL: High >190 mg/dL: Very High CARDIAC RISK RATIO 7.0(H) 3.4 - 5.0 C [facility] Blood 07/19/2017 9:07 AM EDT 07/19/2017 2:18 PM EDT us Maria Dolores Vo NP LAB BLOOD BKR ORDERABLES Final Result [facility] [address] [place] [address] from Last 3 Months or Most Recently Relevant to Health Maintenance Insurance [facility] PART [facility] & [facility] & [place] & B [facility] MEDICARE PART A & B Care Teams Supervisor [employer] Relationship Specialty Start Date End Date Ekta Yang NP [address] [place] [id number] PCP - General Nurse Practitioner 08/17/23 Additional Source Comments The information contained in this document represents components of the legal health record. It is not the complete legal health record.[facility]
--- OUTSIDE RECORDS SUMMARY | 2025-03-01 19:33 | XMS_ITS | Encounter Summary ---
Author Organization [facility] Address [address] [facility] [address] [place] [phone] Phone Care Team Providers Care Warper Tender Name Role Phone Ekta Yang MARY Primary Care Provider [phone] [phone] Encounter Details Date Type Department Care Team (Late st Contact Info) Description 01/23/2025 Procedure Pass [facility] Endoscopy Admitting Dept Virtual Department [address] [place] [address] Social History Tobacco Use Types Packs/Day Years Used Date Smoking Tobacco: Every Day Cigarettes 0.3 30 Smokeless Tobacco: Never Comments:Qi 4 mos ago Alcohol Use Standard [...] documented as of this encounter Care Teams Warper Tender Relationship Specialty Start Date End Date Ekta Yang NP [address] [place] [id number] PCP - General Nurse Practitioner 08/17/23 documented as of this encounter Additional Source Comments The information contained in this document represents components of the legal health record. It is not the complete legal health record.[facility]
--- OUTSIDE RECORDS SUMMARY | 2025-03-01 19:33 | XMS_ITS | Encounter Summary ---
Author Organization [facility] Address [address] [place] [address] Phone Care Team Providers Care Oracle Database Administrator Name Role Phone Ekta Yang MARY Primary Care Provider [phone] Reason for Visit * Reason Onset Date Comments Schedule Procedure 02/15/2025 Encounter Details Date Type Department Care Team ([facility] st Contact Info) Description 02/15/2025 Telephone [facility] [address] [place] [address] Caleb Kearns MD [address] [address] [email or web address] Schedule Procedure Social History Tobacco Use Types Packs/Day Years [...] on file documented as of this encounter Progress Notes * Amna Hernandez - 02/15/2025 9:07 AM EST Patient calling to schedule colonoscopy w/ VB ordered by 01/23/25. documented in this encounter Plan of Treatment Scheduled Procedures Name Priority Associated Diagnoses Date/Ti me COLONOSCOPY History of colonic polyps documented as of this encounter Visit Diagnoses Not on filedocumented in this encounter Additional Health Concerns Assessment Noted Time PHQ-2 Depression Total Score: 0 03/28/19 18 1:01 PM EST documented as of this encounter Care Teams Oracle Database Administrator Relationship Specialty Start Date End Date Ekta Yang NP [address] [place] [id number] PCP - General Nurse Practitioner 08/17/23 documented as of this encounter Additional Source Comments The information contained in this document represents components of the legal health record. It is not the complete legal health record.[facility]
== END 2025-03-01 15:31 | disposition home or self-care (01) ==
LOC: HO.HPSW 14:18
PROVIDERS: PCP Nurse Practitioner Family; Visit Provider Nurse Practitioner Family
DX: J44.9 Chronic obstructive pulmonary disease, unspecified (principal); R91.8 Other nonspecific abnormal finding of lung field; R06.09 Other forms of dyspnea; Z87.891 Personal history of nicotine dependence
CPT/HCPCS: 94618; 99214; G2211

== ENCOUNTER 2025-03-01 14:17 | Outpatient (REF) | payer MEDICARE, MEDICAID, SELFPAY ==
[2025-03-04 21:38] LABS: Antibody to SS-A Antigen 1.3 POS AI (<1.0 NEG); Antibody to SS-B Antigen <1.0 NEG AI (<1.0 NEG)
== END 2025-03-01 14:18 | disposition home or self-care (01) ==
LOC: HO.WFDLDS 14:17
PROVIDERS: PCP Nurse Practitioner Family; Visit Provider Nurse Practitioner Family
DX: J44.9 Chronic obstructive pulmonary disease, unspecified (principal); R93.89 Abnormal findings on diagnostic imaging of other specified body structures; R91.8 Other nonspecific abnormal finding of lung field; R68.2 Dry mouth, unspecified; M25.50 Pain in unspecified joint; R06.09 Other forms of dyspnea; Z87.891 Personal history of nicotine dependence; Z01.84 Encounter for antibody response examination
CPT/HCPCS: 36415; 86038; 86200; 86225; 86235; 86331; 86431; 86606; 86609; 94618; 99212